=== PATIENT | male | born 1990 | race American Indian/Alaskan Native ===

== ENCOUNTER 2017-07-06 13:59 | Emergency (ER) | payer SELFPAY ==
[~2017-07-06 13:59] MED LIST: ADRENALIN ONE
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
== END 2017-07-06 16:27 ==
LOC: EDBD → EDSEX → ED 13:59
DX: S21.131A Puncture wound without foreign body of right front wall of thorax without penetration into thoracic cavity, initial encounter (principal); I46.9 Cardiac arrest, cause unspecified; J94.2 Hemothorax; W34.00XA Accidental discharge from unspecified firearms or gun, initial encounter; Y93.89 Activity, other specified; Y92.89 Other specified places as the place of occurrence of the external cause; Y99.8 Other external cause status
CPT/HCPCS: 31500; 32551; 92950; 99285; J0171